=== PATIENT | male | born 2000 | race African-American/Black ===

== ENCOUNTER 2022-05-26 02:23 | Emergency (ER) | payer OTHER, SELFPAY ==
--- NOTE | ~2022-05-26 | XR_ITS ---
EXAMINATION: XR hand LT min 3V INDICATION: Left hand pain TECHNIQUE: Three views of the left hand are obtained. COMPARISON: None available FINDINGS: There is an acute, traumatic, closed, comminuted intra-articular fracture at the base of th e fifth metacarpal. Adjacent soft tissue swelling is noted. No additional fracture is identified. IMPRESSION: 1. Comminuted intra-articular fracture at the base of the fifth metacarpal. Reviewed, dictated and finalized at location A.
--- NOTE | ~2022-05-26 | XR_ITS ---
EXAMINATION: XR wrist LT min 3V DATE: 05/26/2022 03:00 INDICATION: Left wrist pain, initial encounter TECHNIQUE: Posteroanterior, ulnar deviation, oblique, and lateral views of the left wrist were obtain ed. COMPARISON: None available FINDINGS: There is an acute, traumatic, closed, comminuted intra-articular fracture at the base of th e fifth metacarpal. Adjacent soft tissue swelling is noted. No additional fracture is identified. IMPRESSION: 1. Comminuted intra-articular fracture at the base of the fifth metacarpal. Reviewed, dictated and finalized at location A.
[2022-05-26 02:30] VITALS: BP 142/90; PULSE 67; RESP 16; TEMP 36.6; O2SAT 97
--- NOTE | 2022-05-26 02:40 | ED.UPPEXIN ---
HPI - Extremity Injury (Upper) General Chief Complaint: Extremity Injury, Upper Stated Complaint: Left wrist pain after fall Time Seen by Provider: 05/26/22 02:29 History of Present Illness HPI narrative: 21 old male presents emergency room secondary pain to his left wrist. States he worked in the yard when he slipped and fell and caught himself with an outstretched left hand. Been having some pain to the wrist area ever since. He has left hand dominant. He is able to use and move the wrist but just painful to do so. Denies any prior injuries to this wrist. Related Data Allergies Allergy/AdvReac Type Severity Reaction Status Date / Time No Known Allergies Allergy Verified 05/26/22 02:41 Review of Systems Review of Systems: CONSTITUTIONAL: Denies fever, chills, or sweats. EYES: Denies visual changes, redness, or discharge. ENT: Denies rhinorrhea, congestion, sore throat, or otalgia. CARDIOVASCULAR: Denies chest pain, palpitations, or edema. RESPIRATORY: Denies cough or dyspnea. GASTROINTESTINAL: Denies abdominal pain, nausea, vomiting, or diarrhea. GENITOURINARY: Denies dysuria or hematuria. SKIN: Denies rash or itching. MUSCULOSKELETAL: As per the HPI noted to have pain to the left wrist NEUROLOGIC: Denies headache, numbness, or weakness. PSYCHIATRIC: Denies anxiety or depression. [facility] Past Medical History Medical History (Updated 05/26/22 @ 03:13 by Amando Barnes DO) No pertinent past medical history Social History Social History (Updated 05/26/22 @ 02:41 by Amando Barnes DO) Living arrangements: with family Occupation/Education: unemployed Exam Narrative: APPEARANCE: Well appearing, no pain or distress, well-nourished. Head Normocephalic and atraumatic. EYES: PERRLA/EOMI, conjunctivae clear. NOSE: Normal with no drainage EARS:TMS clear with Gifford, with good light reflex. THROAT: Pharynx clear, no exudate. NECK: Supple. No adenopathy, no masses. RESPIRATORY: Airway patent, respirations nonlabored. Clear to auscultation bilaterally, no rales, rhonchi, wheezing. CARDIOVASCULAR: Regular rate and rhythm without murmurs, rubs, or gallops. ABDOMINAL: Soft, nontender, nondistended, no hepatosplenomegaly Musculoskeletal: Moves all extremities. Strength/ROM intact. Some tenderness to palpation to the left wrist to the lateral aspect as well as to the base of the fifth left metacarpal. No obvious deformity. Good range of motion. No tenderness to the hand. NEURO: Alert. Cranial nerves II through XII intact. Normal gait. Good coordination. Nonfocal examination. SKIN:: Warm, dry. Normal Color PSYCHIATRIC: Normal affect/mood, normal interaction Course Vital Signs Vital signs: Vital Signs Temperature 97.8 F 05/26/22 02:30 Pulse Rate 67 05/26/22 02:30 Respiratory Rate 16 05/26/22 02:30 Blood Pressure 142/90 H 05/26/22 02:30 Pulse Oximetry 97 05/26/22 02:30 Oxygen Delivery Room Air 05/26/22 02:30 Temperature 97.8 F 05/26/22 02:30 Pulse Rate 67 05/26/22 02:30 Respiratory Rate 16 05/26/22 02:30 Blood Pressure 142/90 H 05/26/22 02:30 Pulse Oximetry 97 05/26/22 02:30 Oxygen Delivery Room Air 05/26/22 02:30 MDM - Extremity Injury (Upper) MDM Narrative Medical decision making narrative: X-rays read by me shows a fracture to the base of the left fifth metacarpal. Ulnar gutter splint was applied. We referred out to hand surgeon. Imaging Data My impression: Fracture to the base of the left fifth metacarpal Discharge Plan Discharge Clinical Impression: Closed fracture of base of fifth metacarpal bone of left hand Patient Disposition: Home, Self-Care Condition: Stable Instructions: Hand Fracture (ED) Additional Instructions: Ice to decrease swelling. Follow-up with a physician that you are referred to. Prescriptions: New naproxen [Naprosyn] 500 mg tablet 500 mg PO BID PRN (Reason: pain) Qty: 20 0RF Follow-up/Referrals: Lucien Walker
== END 2022-05-26 03:35 | disposition home or self-care (01) ==
PROVIDERS: Emergency Provider Emergency Medicine
DX: S62.317A Displaced fracture of base of fifth metacarpal bone, left hand, initial encounter for closed fracture (principal); W01.0XXA Fall on same level from slipping, tripping and stumbling without subsequent striking against object, initial encounter
CPT/HCPCS: 29125; 73110; 73130; 99284

== ENCOUNTER 2022-12-02 10:41 | Emergency (ER) | payer OTHER, SELFPAY ==
--- NOTE | ~2022-12-02 | XR_ITS ---
XR hand LT min 3V 12/02/2022 10:52 Indication: Left hand pain and swelling Procedure: 3 views left hand Comparison: 05/26/2022 Findings: There is an acute oblique shaft fracture of the fourth metacarpal with dorsal displacement and volar angulation. Moderate soft tissue swelling. There is an old fracture deformity base of the f ifth metacarpal. No foreign bodies. Impression: 1: Acute oblique displaced shaft fracture left fourth metacarpal with dorsal displacement and volar a ngulation. 2: Chronic fracture deformity base of the fifth metacarpal. Reviewed, dictated and finalized at location A. CTOR IT Impression: 1: Acute oblique displaced shaft fracture left fourth metacarpal with dorsal di splacement and volar angulation. 2: Chronic fracture deformity base of the fifth metacarpal.
--- NOTE | ~2022-12-02 | XR_ITS ---
XR hand LT min 3V 12/02/2022 12:38 Indication: Left hand fracture post reduction Procedure: 3 views left hand Comparison: 12/02/2022 Findings: No significant change to alignment of fourth metacarpal fracture. There is approximately tw o thirds bone width dorsal displacement and 20 degrees volar angulation. No intra-articular involveme nt. Old healed fracture base of the fifth metacarpal unchanged. Impression: 1: Stable alignment of midshaft fracture left fourth metacarpal with dorsal displacement and volar an gulation.. Reviewed, dictated and finalized at location A. INTERN Impression: 1: Stable alignment of midshaft fracture left fourth metacarpal with dorsal dis placement and volar angulation..
[2022-12-02 11:02] VITALS: BP 126/66; PULSE 61; RESP 15; TEMP 36.6; O2SAT 99
[2022-12-02] MEDS: MORPHINE SULFATE (*CRX) 4 MG/ML INJ IV PUSH (12:09)
[2022-12-02] MEDS: ONDANSETRON INJ 4 MG/2 ML VIAL IV PUSH (12:09)
--- NOTE | 2022-12-02 12:17 | ED.UPPEXIN ---
HPI - Extremity Injury (Upper) General Chief Complaint: Extremity Injury, Upper Stated Complaint: left hand injury - swelling and pain Time Seen by Provider: 12/02/22 11:09 Source: patient Mode of arrival: ambulatory Limitations: no limitations History of Present Illness HPI narrative: Patient is a 22-year-old male who presents to the ED with report of left hand pain. Patient reports he was moving a refrigerator with a friend on when the refrigerator fell over and landed on top of his hand. He was unable to move it. He complains of pain to his left dorsal hand, over area of fourth metacarpal. He tried going to a hospital that night, but the wait was too long. He complained of persistent pain today, which prompted his presentation. No numbness or tingling. Related Data Allergies Allergy/AdvReac Type Severity Reaction Status Date / Time No Known Allergies Allergy Verified 05/26/22 02:41 Review of Systems Review of Systems: CONSTITUTIONAL: Denies fever, chills, or sweats. MUSCULOSKELETAL: See HPI. NEUROLOGIC: Denies tingling, numbness, or weakness. All systems reviewed & are unremarkable except as noted in HPI and below PMFSH Past Medical History Medical History No pertinent past medical history Surgical History Surgical History No pertinent past surgical history Social History Social History Living arrangements: with family Occupation/Education: unemployed Exam Narrative: GENERAL: Well appearing, thin, non-toxic, in no acute distress. HEAD: Normocephalic, atraumatic. NECK: Supple. No adenopathy, no masses. RESPIRATORY: Airway patent, respirations nonlabored. CARDIOVASCULAR: Regular rate and rhythm without murmurs, rubs, or gallops. Radial pulses 2+ and equal bilaterally. MUSCULOSKELETAL: Tenderness to palpation over area of fourth and fifth metacarpals over dorsal left hand. Palpable bony deformity over 4th metacarpal on dorsum of hand. Patient with movement of all fingers on exam. Sensation intact. Good capillary refill of all fingers. SKIN: Warm, dry, normal color. No rashes. NEURO: A&O X3. Speech clear. Cranial nerves II-XII grossly intact. Steady gait. No ataxic movements. PSYCHIATRIC: Appropriate mood and affect. Normal interaction. Course Vital Signs Vital signs: Vital Signs Temperature 98 F 12/02/22 11:02 Pulse Rate 61 12/02/22 11:02 Respiratory Rate 15 12/02/22 11:02 Blood Pressure 126/66 12/02/22 11:02 Pulse Oximetry 99 12/02/22 11:02 Oxygen Delivery Room Air 12/02/22 11:02 Temperature 98 F 12/02/22 11:02 Pulse Rate 84 12/02/22 13:32 Respiratory Rate 16 12/02/22 13:32 Blood Pressure 128/86 12/02/22 13:32 Pulse Oximetry 98 12/02/22 13:32 Oxygen Delivery Room Air 12/02/22 11:02 Procedures Orthopedic Fracture Reduction Fracture #1: Fracture Reduction date: 12/02/22 Fracture Reduction time: 12:20 Time Out Performed: Yes Side: left Fracture Reduction Location: metacarpal (4th) Analgesia: other (IV Morphine) Pre-Procedure Neuro Vascular Exam: normal Technique: direct manipulation Post Reduction X-rays Demonstrate: acceptable reduction Post-reduction neuro exam: intact and no change Post-reduction vascular exam: intact and no change Splint Applied: Yes Patient Tolerated Procedure: well and no complications Orthopedic Splinting/Casting Injury #1: Splinting/Casting Date: 12/02/22 Splinting/Casting Time: 12:25 Side: left Upper Extremity Injury Location: wrist and hand Splint: customized in ED OCL: ulnar gutter Pre-Procedure Neuro Vascular Exam: normal Post-Procedure Neuro Vascular Exam: normal MDM - Extremity Injury (Upper) MDM Herbert
[2022-12-02 13:32] VITALS: BP 128/86; PULSE 84; RESP 16; O2SAT 98
== END 2022-12-02 13:33 | disposition home or self-care (01) ==
PROVIDERS: Emergency Provider Physician Assistant
DX: S62.325A Displaced fracture of shaft of fourth metacarpal bone, left hand, initial encounter for closed fracture (principal); W20.8XXA Other cause of strike by thrown, projected or falling object, initial encounter
CPT/HCPCS: 26605; 73130; 96374; 96375; 99285; J2270; J2405

== ENCOUNTER 2023-01-21 16:17 | Observation (INO) | payer BC, OTHER, SELFPAY ==
--- NOTE | ~2023-01-21 | CT_ITS ---
EXAMINATION: CT soft tissue neck w con DATE: 01/21/2023 18:26 INDICATION: Rule out abscess. TECHNIQUE: Computed tomography (CT) of the neck was performed with 75 mL Omnipaque-350 intravenous co ntrast. Automated exposure control and iterative reconstruction technique were employed. The dose-duane gth product was 537.24 mGy-cm. COMPARISON: None FINDINGS: The thyroid gland is unremarkable. The submandibular and parotid glands are symmetric. Bilateral upper anterior cervical chain lymphadenopathy. 3.8 x 2.0 x 2.3 cm peripherally enhancing hypodensity in the enlarged left palatine tonsil. The superior mediastinum is unremarkable. The airway is un remarkable. Parapharyngeal and pre-glottic fat planes are preserved. Normally enhancing neck мария joshua. The orbits are unremarkable. Complete right maxillary opacification. Large retention cyst or polyp in the left maxillary sinus. The remaining aerated spaces are clear. Visualized lung parench yma is clear. Normal regional bones. . Periodontal disease. IMPRESSION: 1. 3.8 cm early abscess versus phlegmon in the left palatine tonsil. 2. Periodontal disease. 3. Large bilateral maxillary retention cysts or polyps. Reviewed, dictated and finalized at location K.
[2023-01-21 16:43] VITALS: BP 143/83; PULSE 92; RESP 18; TEMP 37.1; O2SAT 97
[2023-01-21 17:48] LABS: Basophils Percent Auto 0.3 % (0.2-1.2); Eosinophils Absolute Auto 0.1 K/mm3 (0-0.3); Eosinophils Percent Auto 0.5 % (0-4.4); Hematocrit 42.4 % (42.0-52.0); Hemoglobin 14.3 g/dL (14.0-18.0); Immature Granulocyte Absolute 0.03 K/mm3 (0.00-0.031); Immature Granulocyte Percent A 0.3 % (0-0.5); Lymphocytes Absolute Auto 1.46 K/mm3 (0.9-3.2); Lymphocytes Percent Auto 14.8 % (18.3-44.2); Mean Corpuscular HGB Conc 33.7 g/dl (32-36); Mean Corpuscular Hemoglobin 30.4 pg (26-34); Mean Corpuscular Volume 90.2 fl (80-100); Mean Platelet Volume 9.4 fl (7.4-10.4); Monocytes Absolute Auto 0.9 K/mm3 (0.1-0.6); Monocytes Percent Auto 9.2 % (2.6-8.5); Neutrophils Absolute Auto 7.4 K/mm3 (1.3-6.7); Neutrophils Percent Auto 74.9 % (45.5-73.1); Platelet Count Result 261 k/mm3 (150-375); Red Cell Distribution Width 12.8 % (11.5-14.5); White Blood Count 9.9 K/mm3 (4.5-10.0)
--- NOTE | 2023-01-21 17:53 | ED.GENADULT ---
HPI - General Adult General Chief complaint: Skin/Abscess/Foreign Body Stated complaint: Tonsil stones Time Seen by Provider: 01/21/23 17:07 Source: patient Mode of arrival: ambulatory Limitations: no limitations History of Present Illness HPI narrative: This is a 22-year-old male who presents to the ED with chief complaint of left tonsil stone x3 days. Patient states he has had a stone in his tonsil in the past but is much worse in the past couple of days. He states it causes him pain with certain movements of the neck and head. Reports troubles with swallowing food, has not eaten in the last 2 days. States he is able to drink water. Denies fevers, chills, nausea, vomiting. Denies shortness of breath. Denies drooling or trismus. Related Data Home Medications Medication Instructions Recorded Confirmed No Home Medications 01/21/23 01/21/23 Allergies Allergy/AdvReac Type Severity Reaction Status Date / Time No Known Allergies Allergy Verified 01/21/23 17:07 Review of Systems Review of Systems: CONSTITUTIONAL: Denies fever, chills, or sweats. EYES: Denies visual changes, redness, or discharge. ENT: Endorses sore throat. Endorses tonsil stone. Denies rhinorrhea, congestion, or otalgia. CARDIOVASCULAR: Denies chest pain, palpitations, or edema. RESPIRATORY: Denies cough or dyspnea. GASTROINTESTINAL: Denies abdominal pain, nausea, vomiting, or diarrhea. GENITOURINARY: Denies dysuria or hematuria. SKIN: Denies rash or itching. MUSCULOSKELETAL: Denies back pain, joint pain, or myalgia. NEUROLOGIC: Denies headache, numbness, dizziness, or weakness. PSYCHIATRIC: Denies anxiety or depression. [facility] Past Medical History Medical History No pertinent past medical history Surgical History Surgical History No pertinent past surgical history Family History Family History (Updated 01/21/23 @ 22:03 by HUE Galarza) Mother Diabetes mellitus Other Diabetes mellitus Social History Social History Additional smoking assessment comments: Smokes marijuana 2-3x every other day. Alcohol intake: current Substance use: current Substance use type: marijuana Other substance usage details: 2-3 x every other day Last use: 01/20/2023 Lack of Transportation: No Lack of Food: Never True Current Housing: I Have Housing Concerned About Future Housing: No Difficulty Paying Gas/Electric Bills: No Difficulty Paying for Meds: No Currently Unemployed: No Education: High School Diploma/GED Difficulty w/ Childcare or Family Care: No Living arrangements: with family Occupation/Education: unemployed Spiritual care concerns: No Exam Narrative: GENERAL: Well-appearing, well-nourished, and in no acute distress. HEAD: Normocephalic, atraumatic. EYES: PERRLA and EOMI. ENT: 3+ left tonsillar swelling. Tonsil stone visualized. Uvula slightly deviated. No further lesions noted. No overt skin changes or warmth. Nares clear, no rhinorrhea or epistaxis. Mucous membranes moist. Oropharynx without tonsillar hypertrophy exudate or other lesions. Maintaining airway well. No drooling or trismus. No hot potato voice. NECK: Supple. No adenopathy or masses. CHEST: No respiratory distress. Clear to auscultation. No wheezes rales or rhonchi HEART: Regular rate and rhythm. No murmur heard. Normal peripheral pulses. ABDOMEN: Soft, nontender, nondistended, normal active bowel sounds. EXTREMITIES: Normal range of motion. No edema. SKIN: Warm, dry, no rash. NEURO: Alert and oriented x3. No focal deficits. PSYCH: Normal mood and affect. GENERAL: Well-appearing, well-nourished, and in no acute distress. Course Course Emergency Course: Consult 193: Talked with Dr. Gibson (ENT) who recommends admission to medicine with antib
[2023-01-21 18:13] LABS: Alanine Aminotransferase 14 U/L (6-50); Alkaline Phosphatase 116 U/L (38-126); Anion Gap 11 mmol/L (8-16); Aspartate Amino Transferase 21 U/L (17-59); Bilirubin,Total 1.4 mg/dL (0.2-1.3); Blood Urea Nitrogen 13 mg/dL (9-20); Calcium 9.8 mg/dL (8.4-10.2); Carbon Dioxide 28 mmol/L (22-30); Chloride 101 mmol/L (98-107); Estimated Glomerular Filt Rate > 60; Glucose 87 mg/dL (65-110); Potassium 4.3 mmol/L (3.4-5.0); Sodium 140 mmol/L (137-145)
[2023-01-21 18:30] LABS: CRP 17.3 mg/dL (<1.0)
[2023-01-21 19:06] LABS: Strep Group A RT-PCR NOT DETECTED (Negative)
--- NOTE | 2023-01-21 19:49 | PM.IMHP ---
H&P: HPI History of Present Illness Date/Time: 01/21/23 19:49 Chief Complaint: Discomfort swallowing Narrative: This is a 22-year-old male with no significant past medical history presents to the emergency room with 3 days discomfort of the throat with swallowing, initially felt like upper respiratory infection like symptoms, denies any fevers, chills, rigors. Has been able to swallow. Denies any nausea, vomiting, diarrhea, abdominal pain. Preliminary workup was significant for CT of soft tissue in a shows early abscess of the left tonsil. Patient is being admitted for further evaluation management and treatment. CT soft tissue neck FINDINGS: The thyroid gland is unremarkable. ? The submandibular and parotid glands are symmetric. ? Bilateral upper anterior cervical chain lymphadenopathy. 3.8 x 2.0 x 2.3 cm peripherally enhancing hypodensity in the enlarged left palatine tonsil.? ? The superior mediastinum is unremarkable. ? The airway is unremarkable. ? Parapharyngeal and pre-glottic fat planes are preserved. ? Normally enhancing neck arteries.? The orbits are unremarkable. ? Complete right maxillary opacification. Large retention cyst or polyp in the left maxillary sinus. The remaining aerated spaces are clear. ? Visualized lung parenchyma is clear.? Normal regional bones.? . Periodontal disease. IMPRESSION: 1. 3.8 cm early abscess versus phlegmon in the left palatine tonsil. 2. Periodontal disease. 3. Large bilateral maxillary retention cysts or polyps. Review of Systems Review of Systems: Discomfort with swallowing, left tonsil swelling. Constitutional: Constitutional: Denies chills, Denies fatigue, Denies fever(s), Denies lethargy, Denies malaise, Denies night sweats, Denies poor appetite and Denies weakness Eyes: Eyes: Denies change in vision ENT: Denies dysphagia, Denies vertigo, Denies dizziness, Reports nasal congestion, Denies nasal discharge, Reports nasal obstruction and Reports odynophagia Cardiovascular: Cardiovascular: Denies chest pain, Denies leg edema and Denies palpitations Respiratory: Respiratory: Denies chest congestion, Denies cough, Denies excessive phlegm production and Denies dyspnea Gastrointestinal: Gastrointestinal: Denies abdominal pain, Denies dyspepsia, Denies heartburn, Denies diarrhea, Denies nausea and Denies vomiting Genitourinary: Genitourinary: Reports no additional male genitourinary complaints, Reports as per HPI and Denies dysuria Musculoskeletal: Musculoskeletal: Denies back pain, Denies joint swelling and Denies muscle weakness Integumentary/Breasts: Skin/Breast: Denies rash Neurologic: Denies focal weakness and Denies Sensory deficit (Neuro) Psychiatric: Psychiatric: Reports no additional psychiatric complaints and Reports as per HPI Endocrine: Endocrine: Denies cold intolerance, Denies flushing, Denies heat intolerance, Denies polyphagia, Denies polydipsia and Denies palpitations Hematologic/Lymphatic: Hematologic/Lymphatic: Reports no additional hematologic/lymphatic complaints and Reports as per HPI Allergic/Immunologic: Allergic/Immunologic: Reports no additional allergic/immunologic complaints and Reports as per HPI PMFSH Past Medical History Medical History No pertinent past medical history Surgical History Surgical History No pertinent past surgical history Family History Family History (Updated 01/21/23 @ 22:03 by HUE Galarza) Mother Diabetes mellitus Other Diabetes mellitus Social History Social History Additional smoking assessment comments: Smokes marijuana 2-3x every other day. Alcohol intake: current Substance use: current Substance use type: marijuana Other substance usage details: 2-3 x every other day Last use: 01/20/2023 Lack of Transportation:
[2023-01-21] MEDS: CLINDAMYCIN 450 MG in DEXTROSE 5% IN WATER 50 ML 106 MG IVPB (20:25)
[2023-01-21 20:32] VITALS: BP 133/88; PULSE 88; RESP 16; TEMP 36.9; O2SAT 100
[2023-01-21] MEDS: AMPICILLIN SULB 3 GM/NS 100 ML 3 GM/100 ML VIAL IVPB (21:25)
[2023-01-21 21:57] VITALS: BMI 26.2
[2023-01-21 22:00] VITALS: BP 139/78; PULSE 78; RESP 16; TEMP 37.2; O2SAT 99
--- NOTE | 2023-01-21 22:02 | ADMGEN ---
This patient, Mo Rachel, was admitted to [facility] Surg Room 300-01. Patient/family oriented to hospital policies and general routines including ID bracelet, bed and alarms, visiting hours, pain management, procedures, bathroom and other care routines, personal items, smoking policy, room service/diet, and visiting hours. Information on how to activate the Rapid Response Team has been discussed. Patient/Family are encouraged to report perceived risks to care and to ask questions if they do not understand what they are told or what they should do.
[2023-01-21] MEDS: SODIUM CHLORIDE 0.9% IV 1,000 ML 125 ML IV CONT (22:11)
[2023-01-22] MEDS: PIPERACILLN/TAZ 3.375GM/NS50ML 3.375 GM/50 ML BAG IVPB ×4 (00:47→17:32)
[2023-01-22 06:00] VITALS: BP 105/66; PULSE 83; RESP 16; TEMP 35.9; O2SAT 100
[2023-01-22 07:02] LABS: Estimated CRCL calculation 140 ml/min; Estimated Glomerular Filt Rate > 60
[2023-01-22] MEDS: SODIUM CHLORIDE 0.9% IV 1,000 ML 125 ML IV CONT (11:24)
--- NOTE | 2023-01-22 12:53 | PM.IMPN ---
Progress Note: A&P Assessment and Plan (1) Abscess, peritonsillar: Code(s): J36 - Peritonsillar abscess Status: Acute Assessment and Plan: cont abx, await ent consult, d/c soon (2) Tobacco use: Code(s): Z72.0 - Tobacco use Status: Acute Assessment and Plan: Encouraged cessation Plan DVT prophylaxis with SCDs GI prophylaxis not indicated Code status full code Subjective Date/time seen: 01/22/23 12:53 Interval history: No overnight events noted. No chest pain or shortness of breath. No nausea, vomiting or diarrhea. No fevers or chills. Review of Systems Review of Systems: 12 point review of systems was assessed and was negative except as noted in the HPI Exam Narrative: General: No acute distress, alert and oriented per baseline HEENT: Atraumatic, normocephalic, mucous membranes moist CV: Regular rate and rhythm, S1, S2 Lungs: Clear to auscultation bilaterally, no rales or crackles noted, no wheezes, good air entry Abdomen: Soft, nontender, nondistended Extremities: Normal to inspection Skin: No rashes noted, no lesions or wounds seen Psych: Euthymic, normal affect Objective Data Vital Signs Vital Signs: Vital Signs - 24 hr 01/21/23 16:43 01/21/23 20:32 01/21/23 22:00 Temperature 98.7 F 98.5 F 98.9 F Pulse Rate 92 88 78 Respiratory Rate 18 16 16 Blood Pressure 143/83 H 133/88 139/78 Pulse Oximetry 97 100 99 Oxygen Delivery 01/22/23 06:00 01/22/23 08:00 Temperature 96.7 F L Pulse Rate 83 Respiratory Rate 16 Blood Pressure 105/66 Pulse Oximetry 100 Oxygen Delivery Room Air Intake/Output Intake/Output: Intake & Output 01/19/23 01/20/23 01/21/23 01/22/23 23:59 23:59 23:59 23:59 Intake Total 53 2070 Balance 53 2070 Meds/Results Medications: Active Medications Generic Name Dose Route Start Last Admin Trade Name Freq PRN Reason Stop Dose Admin Dexamethasone Sodium Phosphate 10 mg 01/22/23 09:00 01/22/23 12:50 Dexamethasone Sod Phos Inj 10 Mg/Ml 1 Ml Vial 0.15 mg/kg (10 mg) 10 mg IV PUSH Administration TID ELENI Sodium Chloride 1,000 mls @ 125 mls/hr 01/21/23 19:50 01/22/23 11:24 Normal Saline Iv IV CONT 125 mls/hr .Q8H ELENI Administration Piperacillin/Tazobactam/Dextrose 3.375 gm in 50 mls @ 100 mls/hr 01/22/23 00:00 01/22/23 11:24 Zosyn 3.375 Gm/Ns 50 Ml IVPB 100 mls/hr Q6H ELENI Administration Acetaminophen 1,000 mg in 100 mls @ 400 mls/hr 01/21/23 23:06 Ofirmev 1,000 Mg Ivpb IVPB 01/22/23 23:05 Q6H PRN Pain Rated 4-6 Vancomycin HCl 1,500 mg in 500 mls @ 250 mls/hr 01/22/23 12:00 01/22/23 12:49 Vancomycin 1,500 Mg/D5w 500 Ml IVPB 250 mls/hr Q12H ELENI Administration Ibuprofen 600 mg 01/21/23 23:06 Ibuprofen 600 Mg Tablet PO Q6H PRN Pain Rated 1-3 Radiology Results: ITS Impressions Soft Tissue Neck CT 01/21/23 19:06 IMPRESSION: 1. 3.8 cm early abscess versus phlegmon in the left palatine tonsil. 2. Periodontal disease. 3. Large bilateral maxillary retention cysts or polyps. Labs Labs: Laboratory Results - last 24 hr 01/21/23 01/21/23 01/21/23 17:42 17:42 18:37 WBC 9.9 RBC 4.70 Hgb 14.3 Hct 42.4 MCV 90.2 MCH 30.4 MCHC 33.7 RDW 12.8 Plt Count 261 MPV 9.4 Immature Gran % (Auto) 0.3 Neut % (Auto) 74.9 H Lymph % (Auto) 14.8 L Fleming % (Auto) 9.2 H Eos % (Auto) 0.5 Baso % (Auto) 0.3 Lymph # (Auto) 1.46 Fleming # (Auto) 0.9 H Eos # (Auto) 0.1 Baso # (Auto) 0.0 Abs Immat Gran (auto) 0.03 Absolute Neuts (auto) 7.4 H Absolute Nucleated RBC 0.0 Nucleated RBC % 0.0 Sodium 140 Potassium 4.3 Chloride 101 Carbon Dioxide 28 Anion Gap 11 BUN 13 Creatinine 0.90 Estim Creat Clear Calc Not Reportable Estimated GFR > 60 Glucose 87 Calcium 9.8 Total Bilirubin 1.4 H AST 21 ALT 14 Alkaline Phosphatase
[2023-01-22 14:00] VITALS: BP 128/76; PULSE 81; RESP 18; TEMP 36.6; O2SAT 99
--- NOTE | 2023-01-22 17:45 | WPDPROCEDUR ---
Procedures Abscess I/D Comments: All the consents obtained left-sided identified peritonsillar abscess present on imaging as well as clinically. Area infiltrated with 3 cc 1% lidocaine 1 100,000 parts epinephrine opened with 11 blade as well as aspirated aspirated portion sent for culture. Curved Steph hemostat utilized to open the abscess pocket copious amounts of purulence encountered patient tolerated the procedure well.
--- NOTE | 2023-01-22 17:45 | WPDCN ---
Assessment and Plan Assessment and plan (1) Abscess, peritonsillar: Code(s): J36 - Peritonsillar abscess Status: Acute Assessment and Plan: abscess drained, okay for diet okay for discharge from ENT standpoint. Recommend 10 day course of clindamycin or Augmentin as well as Medrol Dosepak. Follow up with me as needed for any all otolaryngologic issues. HPI Data of Consult Date/Time: 01/22/23 17:45 Requesting Physician: Balbina Colbert MD Primary Care Provider: PHYSICIAN NOT ON STAFF Consult Narrative Reason for consult: Left-sided peritonsillar abscess Narrative: Mo Rachel is a 22 year old male with left-sided peritonsillar abscess CT demonstrates present clinically as well Review of Systems Review of Systems: All systems reviewed & are unremarkable except as noted in HPI and below PMFSH Past Medical History Medical History No pertinent past medical history Surgical History Surgical History No pertinent past surgical history Family History Family History (Updated 01/21/23 @ 22:03 by HUE Galarza) Mother Diabetes mellitus Other Diabetes mellitus Social History Social History Additional smoking assessment comments: Smokes marijuana 2-3x every other day. Alcohol intake: current Substance use: current Substance use type: marijuana Other substance usage details: 2-3 x every other day Last use: 01/20/2023 Lack of Transportation: No Lack of Food: Never True Current Housing: I Have Housing Concerned About Future Housing: No Difficulty Paying Gas/Electric Bills: No Difficulty Paying for Meds: No Currently Unemployed: No Education: High School Diploma/GED Difficulty w/ Childcare or Family Care: No Living arrangements: with family Occupation/Education: unemployed Spiritual care concerns: No Meds Home Medications and Allergies Home Medications Medication Instructions Recorded Confirmed Type No Home Medications 01/21/23 01/21/23 History Allergies Allergy/AdvReac Type Severity Reaction Status Date / Time No Known Allergies Allergy Verified 01/21/23 17:07 Vital Signs Vital Signs - 24 hr 01/21/23 20:32 01/21/23 22:00 01/22/23 06:00 Temperature 36.9 C 37.2 C 35.9 C L Pulse Rate 88 78 83 Respiratory Rate 16 16 16 Blood Pressure 133/88 139/78 105/66 Pulse Oximetry 100 99 100 Oxygen Delivery 01/22/23 08:00 01/22/23 14:00 Temperature 36.6 C Pulse Rate 81 Respiratory Rate 18 Blood Pressure 128/76 Pulse Oximetry 99 Oxygen Delivery Room Air Exam Narrative: exudate of tonsillitis left-sided peritonsillar abscess Results Labs 01/21/23 17:42 01/22/23 06:19 Labs: Short CBC 01/21/23 Range/Units 17:42 WBC 9.9 (4.5-10.0) K/mm3 Hgb 14.3 (14.0-18.0) g/dL Hct 42.4 (42.0-52.0) % Plt Count 261 (150-375) k/mm3 BMP 01/21/23 01/22/23 17:42 06:19 Sodium 140 Potassium 4.3 Chloride 101 Carbon Dioxide 28 BUN 13 Creatinine 0.90 0.80 Glucose 87 Calcium 9.8 Liver Function 01/21/23 Range/Units 17:42 Total Bilirubin 1.4 H (0.2-1.3) mg/dL AST 21 (17-59) U/L ALT 14 (6-50) U/L Alkaline Phosphatase 116 (38-126) U/L Albumin 5.0 (3.5-5.1) g/dL
--- NOTE | 2023-01-22 18:24 | PM.DS ---
DS: Admitting Diagnosis Discharge Date 01/22/23 Admitting Diagnosis peritonsillar abscess DS: Discharge Diagnosis Discharge Diagnosis (1) Abscess, peritonsillar: Code(s): J36 - Peritonsillar abscess Status: Acute Assessment and Plan: cont abx, await ent consult, d/c soon (2) Tobacco use: Code(s): Z72.0 - Tobacco use Status: Acute Assessment and Plan: Encouraged cessation Plan DVT prophylaxis with SCDs GI prophylaxis not indicated Code status full code DS: Summary Hospital Course Hospital Course: 22 year old male with peritonsillar abscess, started on IV abx, drained at bedside by ENT. All symptoms improved. He was d/c on augmentin and prednisone. See above and med rec for details. Time Spent with Patient Time attestation: Total time spent providing and/or coordinating discharge services: Exam Narrative: General: No acute distress, alert and oriented per baseline HEENT: Atraumatic, normocephalic, mucous membranes moist CV: Regular rate and rhythm, S1, S2 Lungs: Clear to auscultation bilaterally, no rales or crackles noted, no wheezes, good air entry Abdomen: Soft, nontender, nondistended Extremities: Normal to inspection Skin: No rashes noted, no lesions or wounds seen Psych: Euthymic, normal affect DS: Data Data Completed and Pending Labs on day of discharge: Labs from last 24 hours 01/22/23 01/21/23 01/21/23 06:19 18:37 17:42 Creatinine 0.80 Estim Creat Clear Calc 140 Estimated GFR > 60 C-Reactive Protein 17.3 H Group A Strep (PCR) Not detected Discharge Plan Discharge Attending physician on discharge: Ernestina Ward Consulting providers: Casa Gibson Discharging Clinician: Ernestina Ward Patient Disposition: Home, Self-Care Activity: as tolerated Diet: as tolerated Patient Instructions: Antibiotic Form Stand Alone Forms: General Discharge Information Follow-up/Referrals: Casa Gibson MD [Physician] - PHYSICIAN NOT ON STAFF,NONSTAFF [Primary Care Provider] - Discharge Medications: New amoxicillin-pot clavulanate 875-125 mg tablet 1 tablet PO Q12H 7 Days Qty: 14 0RF prednisone 50 mg tablet 50 mg PO DAILY 5 Days Qty: 5 0RF No Action No Home Medications Date of admission: 01/21/23 19:50 Primary Care Provider: PHYSICIAN NOT ON STAFF,NONSTAFF Admitting Provider: Balbina Colbert V. Attending physician on admission: Balbina Colbert V. Condition: Stable
== END 2023-01-22 19:00 | disposition home or self-care (01) ==
LOC: ANHED 19:53 → ANH3MEDSUR 21:32
PROVIDERS: Admitting Provider Internal Medicine; Emergency Provider Physician Assistant; Visit Provider Student in an Organized Health Care Education/Training Program
DX: J36 Peritonsillar abscess (principal); Z72.0 Tobacco use; K05.6 Periodontal disease, unspecified; F10.90 Alcohol use, unspecified, uncomplicated; F12.90 Cannabis use, unspecified, uncomplicated; R79.82 Elevated C-reactive protein (CRP)
CPT/HCPCS: 42700; 36415; 70491; 80053; 82565; 85025; 86140; 87070; 87205; 87651; 96361; 96365; 96366; 96367; 96372; 96375; 96376; 99285; G0378; J0295; J1100; J2543; J3370; J7030; Q9967